=== PATIENT | female | born 1975 | race Caucasian/White ===

== ENCOUNTER 2021-07-02 10:38 | Inpatient (IN) ==
[2021-07-02] MEDS ORDERED: amLODIPine 5 MG TABLET PO ONE (11:16)
[2021-07-02] MEDS ORDERED: Acetaminophen IV 1,000 MG/100 ML BAG IVPB ONE (11:16)
[2021-07-02] MEDS ORDERED: *HR* FentaNYL (PF) 100 MCG/2 ML VIAL IVP PRN (11:18)
[2021-07-02] MEDS ORDERED: CeFAZolin Syr 2,000MG/20 ML 2,000 MG/20 ML SYRINGE IVPB ONE (11:20)
[2021-07-02] MEDS ORDERED: Ringers Solution, Lactated 1,000 ML IVC SCH ×2 (11:30→18:49)
[2021-07-02] MEDS ORDERED: Polymyxin B Sulfate 500,000 UNIT, Sodium Chloride IRRigation 1,000 ML IR ONE (12:00)
[2021-07-02] MEDS ORDERED: *HR* Propofol 200 MG/20 ML VIAL IVP ONE ×2 (12:48→14:49)
[2021-07-02] MEDS ORDERED: *HR* FentaNYL (PF) 100 MCG/2 ML VIAL ONE (12:48)
[2021-07-02] MEDS ORDERED: *HR* Midazolam HCl 2 MG/2 ML VIAL ONE (12:48)
[2021-07-02] MEDS ORDERED: Lidocaine -MPF 2% 5 ML VIAL ONE (12:53)
[2021-07-02] MEDS ORDERED: Ondansetron 4 MG/2 ML VIAL ONE (12:53)
[2021-07-02] MEDS ORDERED: Vancomycin 1,000 MG VIAL ONE (13:14)
[2021-07-02] MEDS ORDERED: *HR* Remifentanil 2 MG VIAL IVP ONE (13:33)
[2021-07-02] MEDS ORDERED: Dexmedetomidine HCl 400 MCG/100 ML MLS IVC ONE (14:35)
[2021-07-02] MEDS ORDERED: *HR* HYDROMORPHONE 2 MG/ML VIAL ONE (17:25)
[2021-07-02] MEDS ORDERED: Ondansetron 4 MG/2 ML VIAL IVP PRN ×2 (18:49→23:45)
[2021-07-02] MEDS ORDERED: Naloxone 0.4 MG/ML INJ IVP PRN (18:49)
[2021-07-02] MEDS ORDERED: TRULICITY 1.5 MG SQ SCH (18:49)
[2021-07-02] MEDS ORDERED: Acetaminophen 325 MG TABLET PO PRN (18:49)
[2021-07-02] MEDS ORDERED: METHOCARBAMOL 500 MG PO PRN (18:49)
[2021-07-02] MEDS ORDERED: Baclofen 10 MG TABLET PO PRN (18:56)
[2021-07-02] MEDS ORDERED: tiZANidine 4 MG TABLET PO PRN (19:08)
[2021-07-02] MEDS ORDERED: *HR* Dextrose 50 % in Water (Syg) 50 ML SYRINGE IVP PRN (19:18)
[2021-07-02] MEDS ORDERED: Dextrose Gel 15 GM/37.5 ML TUBE PO PRN ×2 (19:18)
[2021-07-02] MEDS ORDERED: D5% in Water 1,000 ML IVC PRN (19:18)
[2021-07-02] MEDS: Pregabalin 50 MG CAPSULE PO SCH (20:51)
[2021-07-02] MEDS: CeFAZolin 2 GM/120 ML BAG IVPB SCH (20:52)
[2021-07-02] MEDS: *HR* Metformin 500 MG TABLET PO SCH (20:53)
[2021-07-02] MEDS: cloNIDine HCL 0.1 MG TABLET PO SCH (20:53)
[2021-07-02] MEDS ORDERED: Insulin DETEMIR 100 UNIT/ML X5UNITS SUBQ SCH (21:00)
[2021-07-02] MEDS: *HR* HYDROcodone/Acet 5/325 mg TABLET PO PRN (21:06)
[2021-07-03] MEDS: *HR* OxyCODONE Immed Rel 5 MG TABLET PO PRN ×3 (00:32→10:03)
[2021-07-03] MEDS: CeFAZolin 2 GM/120 ML BAG IVPB SCH (03:07)
[2021-07-03] MEDS: *HR* HYDROcodone/Acet 5/325 mg TABLET PO PRN (03:16)
[2021-07-03 08:07] VITALS: BP 150/72; PULSE 73; TEMP 97.9; O2SAT 95
[2021-07-03] MEDS ORDERED: Aspirin Enteric Coated 81 MG Tablet PO SCH (09:00)
[2021-07-03] MEDS ORDERED: amLODIPine 5 MG TABLET PO SCH (09:00)
[2021-07-03] MEDS ORDERED: Cholecalciferol (D-3) 1,000 UNIT (25MCG) TABLET PO SCH (09:00)
[2021-07-03] MEDS ORDERED: Fenofibrate 54 MG TABLET PO SCH (09:00)
[2021-07-03] MEDS ORDERED: Propranolol LA (24 HR) 80 MG CAP.SA.24H PO SCH (09:00)
[2021-07-03] MEDS ORDERED: Valsartan 160 MG TABLET PO SCH (09:00)
[2021-07-03] MEDS: cloNIDine HCL 0.1 MG TABLET PO SCH (09:03)
[2021-07-03] MEDS: *HR* Metformin 500 MG TABLET PO SCH (09:03)
[2021-07-03] MEDS: Pregabalin 50 MG CAPSULE PO SCH (09:05)
== END 2021-07-03 11:46 | disposition home or self-care (01) | DRG 321 ==
LOC: SDCAOSI 10:38 → 4WAOSI 19:02
PROVIDERS: ADMIT Orthopaedic Surgery Orthopaedic Surgery of the Spine; ATTEND Orthopaedic Surgery Orthopaedic Surgery of the Spine
PROC: SPICORP (2021-07-02 12:05)